=== PATIENT | female | born 1975 | race Caucasian/White ===

== ENCOUNTER → 2019-10-30 | Outpatient (CLI) | payer OTHER ==
[~2019-10-30] MED LIST: DIVA250T4 PO
== END | disposition home or self-care (01) ==
LOC: CFH 09:36
PROVIDERS: ATTEND Obstetrics & Gynecology
DX: Z12.31 Encounter for screening mammogram for malignant neoplasm of breast (principal)
CPT/HCPCS: 77063; 77067

== ENCOUNTER → 2020-11-23 | Outpatient (CLI) | payer OTHER | END | disposition home or self-care (01) | LOC: CFH 10:14 | PROVIDERS: ATTEND Obstetrics & Gynecology | DX: Z12.31 Encounter for screening mammogram for malignant neoplasm of breast (principal) | CPT/HCPCS: 77063; 77067 ==